=== PATIENT | female | born 2000 | race Caucasian/White ===

== ENCOUNTER 2019-07-17 16:08 | Outpatient (CLI) | payer MEDICAID ==
[2019-07-17 17:09] LABS: APPEARANCE,URINE CLOUDY; BILIRUBIN,URINE NEGATIVE (NEGATIVE); COLOR,URINE YELLOW; GLUCOSE, URINE NEGATIVE (NEGATIVE); KETONES,URINE NEGATIVE (NEGATIVE); LEUKOCYTE ESTERASE,URINE LARGE (NEGATIVE); NITRITE,URINE NEGATIVE (NEGATIVE); PROTEIN,URINE NEGATIVE (NEGATIVE); URINE SPECIFIC GRAVITY 1.015; UROBILINOGEN,URINE NEGATIVE mg/dL (<2.0)
[2019-07-17 17:10] LABS: ADD MANUAL MICROSCOPIC YES
[2019-07-17 17:29] LABS: URINE AMPHETAMINES SCREEN NEGATIVE; URINE BARBITURATES SCREEN NEGATIVE; URINE BENZODIAZEPINES SCREEN NEGATIVE; URINE COCAINE SCREEN NEGATIVE; URINE MARIJUANA (THC) SCREEN NEGATIVE; URINE METHADONE SCREEN NEGATIVE; URINE PHENCYCLIDINE SCREEN NEGATIVE
[2019-07-17 17:29] LABS: BACTERIA (WET MOUNT) 4+ BACTERIA SEEN; EPITHELIALS (WET MOUNT) 4+ EPITHELIALS SEEN; RBCS (WET MOUNT) NO RBCS SEEN; T.VAGINALIS (WET MOUNT) NO TRICHOMONAS SEEN; WBCS (WET MOUNT) 4+ WBCS SEEN; YEAST (WET MOUNT) NO YEAST SEEN
[2019-07-17 17:34] LABS: AMORPHOUS SEDIMENT,UR 3+; BACTERIA,URINE 1+ /HPF
[2019-07-17 18:50] LABS: CHLAM PCR NOT DETECTED (NOT DETECT)
--- NOTE | 2019-07-17 19:22 | Non Stress Test Report ---
Non Stress Test Datetime Report Generated by CPN: 07/17/2019 19:22 DEMOGRAPHIC EGA NST: 28.4 INDICATION Indication for Study: Ordered by Provider MONITORING Monitor Explained: Monitor Explained; Test Explained; Patient Verbalized Understanding Time on Monitor: 07/17/2019 18:39 Time off Monitor: 07/17/2019 18:59 NST Duration: 20 NST INTERVENTIONS NST Interventions: PO Hydration; Reposition Patient Physician Notified NST: Dr. Mcfarlane BABY A: [id number] BABY A Movement : Present Contraction Frequency : 0 FHR Baseline : 140 Accelerations : 15X15 Decelerations : None Variability : Moderate 6-25bpm NST Review: Meets Criteria for Reactive NST NST Review and Verified By : joanrtyoselinRN NST Results: Reactive NST REPORT Report Trigger: Send Report
== END 2019-07-17 19:11 | disposition home or self-care (01) ==
LOC: LC 16:08
PROVIDERS: ATTEND Obstetrics & Gynecology Gynecology
DX: O36.8330 Maternal care for abnormalities of the fetal heart rate or rhythm, third trimester, not applicable or unspecified (principal); Z3A.28 28 weeks gestation of pregnancy
CPT/HCPCS: 59025; 87210; 81001; 80307; 87491; 87591; Q0114

== ENCOUNTER 2019-09-25 08:09 | Outpatient (CLI) | payer MEDICAID ==
[~2019-09-25 08:09] MED LIST: FERRIC CARBOXYMALTOSE 750 MG in NORMAL SALINE 250 ML IV PRN; NORMAL SALINE 250 ML IV PRN
[2019-09-25 08:36] VITALS: BP 127/71
== END 2019-09-25 10:17 | disposition home or self-care (01) ==
LOC: II 08:09 → 5TH 08:12 → II 10:17
PROVIDERS: ATTEND Obstetrics & Gynecology
PROC: 3E033GC Introduction of Other Therapeutic Substance into Peripheral Vein, Percutaneous Approach (ICD-10-PCS; principal; 2019-09-25)
DX: O99.019 Anemia complicating pregnancy, unspecified trimester (principal)
CPT/HCPCS: 96365; J7050; J1439

== ENCOUNTER 2019-10-02 13:08 | Outpatient (CLI) | payer MEDICAID ==
[2019-10-02 15:30] LABS: URINE AMPHETAMINES SCREEN NEGATIVE; URINE BARBITURATES SCREEN NEGATIVE; URINE BENZODIAZEPINES SCREEN NEGATIVE; URINE COCAINE SCREEN NEGATIVE; URINE MARIJUANA (THC) SCREEN NEGATIVE; URINE METHADONE SCREEN NEGATIVE; URINE PHENCYCLIDINE SCREEN NEGATIVE
== END 2019-10-02 15:17 | disposition home or self-care (01) ==
LOC: LC 13:08
PROVIDERS: ATTEND Obstetrics & Gynecology
PROC: 4A1HXCZ Monitoring of Products of Conception, Cardiac Rate, External Approach (ICD-10-PCS; principal; 2019-10-02)
DX: Z34.83 Encounter for supervision of other normal pregnancy, third trimester (principal); Z3A.39 39 weeks gestation of pregnancy
CPT/HCPCS: 80307; 84112

== ENCOUNTER 2019-10-03 07:43 | Outpatient (CLI) | payer MEDICAID ==
[2019-10-03] MEDS ORDERED: FERRIC CARBOXYMALTOSE 750 MG in NORMAL SALINE 250 ML IV PRN (08:00)
[2019-10-03] MEDS ORDERED: NORMAL SALINE 250 ML IV PRN (08:00)
[2019-10-03 08:47] VITALS: BP 131/68
== END 2019-10-03 08:56 | disposition home or self-care (01) ==
LOC: II 07:43 → 5TH 07:47 → II 08:56
PROVIDERS: ATTEND Obstetrics & Gynecology
PROC: 3E033GC Introduction of Other Therapeutic Substance into Peripheral Vein, Percutaneous Approach (ICD-10-PCS; principal; 2019-10-03)
DX: O99.019 Anemia complicating pregnancy, unspecified trimester (principal)
CPT/HCPCS: 96365; J7050; J1439

== ENCOUNTER 2019-10-07 10:52 | Outpatient (CLI) | payer MEDICAID ==
--- NOTE | 2019-10-07 12:13 | Non Stress Test Report ---
Non Stress Test Datetime Report Generated by CPN: 10/07/2019 12:13 DEMOGRAPHIC EGA NST: 40.2 EGA NST: 39.4 INDICATION Indication for Study (NST) Other: Post dates Indication for Study (NST) Other: IUP @ 39.4 VITAL SIGNS Temperature - NST: 98.3 Pulse - NST: 110 RESP - NST: 18 NBPSYS NST: 115 NBPDIA NST: 56 MONITORING Monitor Explained: Monitor Explained; Test Explained; Patient Verbalized Understanding Monitor Explained: Monitor Explained; Test Explained; Patient Verbalized Understanding Time on Monitor: 10/07/2019 11:12 Time on Monitor: 10/02/2019 13:27 Time off Monitor: 10/07/2019 11:58 Time off Monitor: 10/02/2019 15:04 NST Duration: 46 NST Duration: 97 NST INTERVENTIONS NST Interventions: PO Hydration NST Interventions: PO Hydration; Reposition Patient Physician Notified NST: Zena Bahean CNM Physician Notified NST: Dr. Romo BABY A: [id number] BABY A Movement : Present Movement : Present Contraction Frequency : irregular FHR Baseline : 140 Accelerations : 15X15 Accelerations : 15X15 Decelerations : None Decelerations : None Variability : Moderate 6-25bpm Variability : Moderate 6-25bpm NST Review: Meets Criteria for Reactive NST NST Review: Meets Criteria for Reactive NST NST Review and Verified By : Niki Kurtz RN NST Results: Reactive NST Results: Reactive NST REPORT Report Trigger: Send Report
== END 2019-10-07 12:07 | disposition home or self-care (01) ==
LOC: LC 10:52
PROVIDERS: ATTEND Obstetrics & Gynecology
PROC: 4A1HXCZ Monitoring of Products of Conception, Cardiac Rate, External Approach (ICD-10-PCS; principal; 2019-10-07)
DX: O48.0 Post-term pregnancy (principal); Z3A.40 40 weeks gestation of pregnancy
CPT/HCPCS: 59025

== ENCOUNTER 2019-10-08 07:43 | Inpatient (IN) | payer MEDICAID ==
[2019-10-08] MEDS ORDERED: OXYTOCIN/NORMAL SALINE 20 UNIT/1,000 ML RTUINJ IV PRN ×2 (08:39→16:33)
[2019-10-08] MEDS ORDERED: RINGERS SOLUTION,LACTATED 1,000 ML IV PRN (08:39)
[2019-10-08] MEDS ORDERED: RINGERS SOLUTION,LACTATED 300 ML IV ONE (08:39)
--- NOTE | 2019-10-08 08:59 | Admission Physical ---
Datetime Report Generated by CPN: 10/08/2019 08:58 CURRENT ADMISSION Indication for Induction- Other: Advanced dilitation Admit Impression : Term, Intrauterine ; Intact Membranes Admit Plan: Admit to Unit; Initiate Labor Induction Protocol ALLERGIES Medication Allergies: No Medication Allergies: No Known Allergies (10/02/2019) Latex: No Latex Allergies Food Allergies: none Environmental Allergies: none OBSTETRICAL HISTORY EDC: 10/05/2019 00:00 : 3 Para: 1 Term: 1 : 0 SAB: 1 IAB: 0 Ectopic: 0 Livin Cesareans: 0 VBACs: 0 Multiple Births: 0 Gestational Diabetes: No Rh Sensitization: No Incompetent Cervix: No TEE: No Infertility: No ART Treatment: No Uterine Anomaly: No IUGR: No Hx Previous C/S: No Macrosomia: No Hx Loss/Stillborn: No PIH: No Hx : No Placenta Previa/Abruption: No Depression/PP Depression: No PTL/PROM: No Post Hemorrhage: No Current Procedures: Ultrasound; NST; BPP Obstetrical History Comments: G1 - (2015) G2 - 11/01/2017 G3 - Current SEE RECORDS Alcohol: No Marijuana : No Cocaine: No Other Illicit Drugs: No Cigarettes: Never Smoker. [id number] MEDICAL HISTORY Diabetes: No Blood Transfusion: No Pulmonary Disease (Asthma, TB): No Breast Disease: No Hypertension: No Quantitative Analyst Marketing Surgery: No Heart Disease: No Hosp/Surgery: Yes Autoimmune Disorder: No Anesthetic Complications: No Kidney Disease: No Abnormal Pap Smear: No Neuro/Epilepsy: No Psychiatric Disorders: No Other Medical Diseases: No Hepatitis/Liver Disease: No Significant Family History: Yes Varicosities/Phlebitis: No Trauma/Violence : No Thyroid Dysfunction: No Medical History Comments: Pt's mother with h/o AFIB, asthma, GDM INFECTIOUS HISTORY Gonorrhea: No Genital Herpes: No Chlamydia: No Tuberculosis: No Syphilis: No Hepatitis: No HIV/AIDS Exposure: No Rash or Viral Illness: No HPV: No PHYSICAL EXAM General: Normal HEENT: Normal Neurologic: Normal Thyroid: Normal Heart: Normal Lungs: Normal Breast: Normal Back: Normal Abdomen: Normal Genitourinary Exam: Normal Extremities: Normal DTRs: Normal Pelvic Type: Adequate Vital Signs: Reviewed; Within Normal Limits VAGINAL EXAM Dilatation: 6 Effacement: 50 Station: -2 Contraction Comments: irregular MEMBRANES Membranes: Intact FETUS A Monitoring: External US FHR- Baseline: 150s Variability: Moderate 6-25bpm Accelerations: 15X15 Decelerations: None FHR Category: Category I Admit Comment: presented to L_D c/o contractions. Checked in the office yesterday and cervix was 6 cm and thick. She reports good movement. GBS Neg. She has no co-morbidities. PLANS FOR LABOR AND DELIVERY Labor and Delivery: None Pain Management: Epidural Feeding Preference: Breast Benefit of Breast Feed Discussed: Yes Circumcision: N/A INFORMED CONSENT Signature: with User ID: [email or web address]
[2019-10-08 09:29] LABS: ABSOLUTE EOSINOPHILS # (AUTO) 0.1 10^3/uL (0.0-0.6); ABSOLUTE LYMPHOCYTES (AUTO) 1.4 10^3/uL (0.5-4.7); ABSOLUTE MONOCYTES (AUTO) 0.6 10^3/uL (0.1-1.4); ABSOLUTE NEUT (AUTO) 8.1 10^3/uL (1.7-8.2); BASOPHILS % (AUTO) 0.2 % (0-2); EOSINOPHILS % (AUTO) 0.5 % (0-6); HEMATOCRIT 34.6 % (36.0-47.0); LYMPHOCYTES % (AUTO) 14.1 % (13-45); MEAN CORPUSCULAR HEMOGLOBIN 23.6 pg (27.0-33.4); MEAN CORPUSCULAR HGB CONC 31.8 g/dL (32.0-36.0); MEAN CORPUSCULAR VOLUME 74 fl (80-97); MONOCYTES % (AUTO) 6.1 % (3-13); PLATELET COUNT 159 10^3/uL (150-450); RED BLOOD COUNT 4.67 10^6/uL (3.72-5.28); RED CELL DISTRIBUTION WIDTH 31.3 % (11.5-14.0); SEGMENTED NEUTROPHILS % (AUTO) 79.1 % (42-78); TOTAL CELLS COUNTED % (AUTO) 100 %; WHITE BLOOD COUNT 10.2 10^3/uL (4.0-10.5)
[2019-10-08 09:55] LABS: ANISOCYTOSIS 2+; PLATELET COMMENT ADEQUATE; POIKILOCYTOSIS SLIGHT; STOMATOCYTES SLIGHT
[2019-10-08 10:02] LABS: URINE AMPHETAMINES SCREEN NEGATIVE; URINE BARBITURATES SCREEN NEGATIVE; URINE BENZODIAZEPINES SCREEN NEGATIVE; URINE COCAINE SCREEN NEGATIVE; URINE MARIJUANA (THC) SCREEN NEGATIVE; URINE METHADONE SCREEN NEGATIVE; URINE PHENCYCLIDINE SCREEN NEGATIVE
[2019-10-08] MEDS ORDERED: OXYTOCIN/NORMAL SALINE 20 UNIT/1,000 ML RTUINJ ONE ×2 (11:25→13:36)
[2019-10-08] MEDS ORDERED: OXYTOCIN 10 UNIT/ML VIAL ONE (13:35)
[2019-10-08] MEDS ORDERED: LIDOCAINE 1% INJ-PF (10 MG/ML) 30 ML SDV ONE (13:36)
[2019-10-08] MEDS ORDERED: MISOPROSTOL 0.2 MG TABLET ONE (13:36)
[2019-10-08] MEDS ORDERED: FENTANYL CITRATE INJ/PF 100 MCG/2 ML AMPUL ONE (14:33)
[2019-10-08] MEDS ORDERED: FENTANYL CITRATE INJ/PF 100 MCG/2 ML AMPUL IV ONE (14:42)
[2019-10-08] MEDS ORDERED: MORPHINE SULFATE 10 MG/ML INJ ONE (16:11)
[2019-10-08] MEDS ORDERED: DIBUCAINE 1% OINTMENT 56 GM TP PRN (16:33)
[2019-10-08] MEDS ORDERED: PSEUDOEPHEDRINE HCL 30 MG TABLET PO PRN (16:33)
[2019-10-08] MEDS ORDERED: PROMETHAZINE HCL INJ 25 MG/1 ML VIAL IV PRN (16:33)
[2019-10-08] MEDS ORDERED: PROMETHAZINE HCL 25 MG TABLET PO PRN (16:33)
[2019-10-08] MEDS ORDERED: GLYCERIN/WITCH HAZEL LEAF 1 EACH MED..WIPE TP PRN (16:33)
[2019-10-08] MEDS ORDERED: DIPH/PERTUSS(ACELL)/TETANUS VAC/PF 0.5 ML SYR (>=10YO) IM PRN (16:33)
[2019-10-08] MEDS ORDERED: NA PHOS,M-B/NA PHOS,DI-BA (ADULT) 133 ML ENEMA PR PRN (16:33)
[2019-10-08] MEDS ORDERED: MAGNESIUM HYDROXIDE SUSP 30 ML UDCUP PO PRN (16:33)
[2019-10-08] MEDS ORDERED: MEASLES,MUMPS&RUBELLA VACC/PF 0.5 ML VIAL SUBCUT PRN (16:33)
[2019-10-08] MEDS ORDERED: ACETAMINOPHEN 650 MG SUPP.RECT PR PRN (16:33)
[2019-10-08] MEDS ORDERED: PROMETHAZINE HCL 25 MG SUPP.RECT PR PRN (16:33)
[2019-10-08] MEDS ORDERED: DIPHENHYDRAMINE HCL 25 MG CAPSULE PO PRN (16:33)
[2019-10-08] MEDS ORDERED: BENZOCAINE/MENTHOL AEROSOL SPRAY 56 ML TOP PRN (16:33)
[2019-10-08] MEDS ORDERED: MISOPROSTOL 0.2 MG TABLET PR ONE (16:43)
[2019-10-08] MEDS ORDERED: METHYLERGONOVINE MALEATE INJ/PF 0.2 MG/1 ML AMPULE ONE (18:14)
[2019-10-08] MEDS ORDERED: METHYLERGONOVINE MALEATE INJ/PF 0.2 MG/1 ML AMPULE IV ONE (18:17)
[2019-10-08] MEDS ORDERED: IBUPROFEN 800 MG TABLET ONE (18:26)
[2019-10-08] MEDS: IBUPROFEN 800 MG TABLET PO SCH (18:32)
--- NOTE | 2019-10-08 19:31 | Delivery Summary ---
Del Sum A-C Datetime Report Generated by CPN: 10/08/2019 19:31 DELIVERY PERSONNEL DELIVERY PERSONNEL: [id number] Delivery Doctor:: Rosalia Weinberg CNM Labor and Delivery Nurse:: Gayatri Diaz RNcalibration checker Nurse:: IRAIS Michelle Tech/HOSPITAL INSURANCE REPRESENTATIVE: Flor Meyers, ST Additional Personnel: : RONN Emerson MATERNAL INFORMATION Delivery Anesthesia: None Medications After Delivery: Pitocin Bolus-Please Comment; Methergine 0.2mg IM; Cytotec 1000mcg Per Rectum/Vagina Delivery QBL: 1198 Maternal Complications: Hemorrhage Provider Comments: pt progressed to c/c/1 with urge to push. Began pushing and completely stopped pushing efforts after delivery of head. Pt. climbed up the bed and started screaming and would not push. Loose nuchal cord released and discussed with patient the importance of taking control and to start pushing again but patient would not push. Andrews RN in bed and patient already in [place] and suprapubic pressure applied and baby delivered without difficulty. Baby placed on maternal abdomen and after tactile stimulation strong respiratory effort and cry noted. Cord clamped x2 and cut by myself and baby to warmer by nursery nurse. Large clots and bleeding present, placenta appeared stuck at cervix but then delivered spontaneously intact. large clots and bleeding continued and vaginal sweep performed. Clots removed and fundus firm @ u-1. Cytotec given rectally and bleeding stabilized. Vaginal and perineal inspection revealed small abrasion as stated and hemostatic. Mother and baby remain in room and stable at this time. LABOR SUMMARY EDC: 10/05/2019 00:00 No. Babies in Womb: 1 Attempted: No Labor Anesthesia: IV Sedation LABOR INFORMATION Reason for Induction: Other Reason for Induction- Other: advanced dilatation Onset of Labor: 10/08/2019 12:57 Complete Dilatation: 10/08/2019 15:55 Oxytocin: Induction Group B Beta Strep: Negative Antibiotics # of Doses: 0 Antibiotics Time of Last Dose: n/a Name of Antibiotic Given: n/a Steroids Given: None Reason Steroids Not Administered: Not Applicable MEMBRANES Membranes Rupture Method: Artificial Rupture of Membranes: 10/08/2019 12:57 Length of Rupture (hr): 3.08 Amniotic Fluid Color: Clear Amniotic Fluid Amount: Moderate Amniotic Fluid Odor: Normal STAGES OF LABOR Stage 1 hr: 2 Stage 1 min: 58 Stage 2 hr: 0 Stage 2 min: 7 Stage 3 hr: 0 Stage 3 min: 9 Total Time in Labor hr: 3 Total Time in Labor min: 14 VAGINAL DELIVERY Episiotomy: None Laceration #1: None Laceration Extension #1: N/A Other Laceration: superficial vaginal hemostatic no need for repair Laceration Repair: Not Applicable Sponge Count Correct: N/A Sharps Count Correct: Yes BABY A INFORMATION Delivery Date/Time: 10/08/2019 16:02 Method of Delivery: Vaginal Born in Route : No : N/A Forceps: N/A Vacuum Extraction: N/A Shoulder Dystocia : No PRESENTATION/POSITION BABY A Presentation: Cephalic Cephalic Presentation: Vertex Vertex Position: Left Occipital Anterior Breech Presentation: N/A PLACENTA INFORMATION BABY A Placenta Delivery Time : 10/08/2019 16:11 Placenta Method of Delivery: Expressed Placenta Status: Delivered SCORES BABY A Heart Rate 1 min: >100 bpm Resp Effort 1 min: Absent Reflex Irritability 1 min: No Response Muscle Tone 1 min: Some Flexion of Extremities Color 1 min: Blue/Pale Resuscitation Effort 1 min: Tactile Stimulation SCORE 1 MIN: 3 Heart Rate 5 min: >100 bpm Resp Effort 5 min: Good Cry Reflex Irritability 5 min: Cough or Sneeze or Pulls Away Muscle Tone 5 min: Active Motion Color 5 min: Blue/Pale Resuscitation Effort 5 min: Tactile Stimulation SCORE 5 MIN: 8 INFORMATION BABY A Gestational Age at Delivery: 40.3 Gestational Status: Full Term- 39- 40.6 Weeks Infant Outcome : Liveborn Condition : Stable Infant Sex: Female IDENTIFICATION BABY A Verification Date/Time: 10/08/2019 17:26 ID Band Number: [id number] Mother's Name Verified: Yes RN Verifying Infant: JNiebuhr,RN Additional Verifying Personnel: IRAIS Orantes WEIGHT/LENGTH BABY A Infant Birthweight (gm): 3975 Weight (lb): 8 Infant Weight (oz): 12 Length (in): 21.00 Length (cm): 53.34 CORD INFORMATION BABY A No. Cord Vessels: 3 Nuchal Cord : Around Neck x1, Loose Cord Blood Taken: Yes-For Storage (Mom's Blood type +) Infant Suction: None ASSESSMENT BABY A Complications: Other Complications- Other: Poor maternal effort to push after delivery of head Physical Findings at Delivery: Bruising Infant Respirations: Appears Normal Skin to Skin: Yes Skin to Skin Time (min): 40 Asbestos Shingle Roofer/ALS Called : No Infant Care By: Kamilla Diaz RN Transferred To: Remains with Mother BABY B INFORMATION : N/A SIGNATURES Assignment: Leonarda Koehler MD Signature: with User ID: Mer : with User ID: Mer
[2019-10-08] MEDS ORDERED: DOCUSATE SODIUM 100 MG CAPSULE ONE (20:08)
[2019-10-08] MEDS ORDERED: FERROUS SULFATE 325 MG TABLET PO ONE (20:09)
[2019-10-08] MEDS: DOCUSATE SODIUM 100 MG CAPSULE PO SCH (20:19)
[2019-10-08] MEDS: FERROUS SULFATE 325 MG TABLET PO SCH (20:19)
[2019-10-08 20:34] LABS: HEMATOCRIT 30.8 % (36.0-47.0); HEMOGLOBIN 9.7 g/dL (12.0-15.5); MEAN CORPUSCULAR HEMOGLOBIN 23.2 pg (27.0-33.4); MEAN CORPUSCULAR HGB CONC 31.5 g/dL (32.0-36.0); MEAN CORPUSCULAR VOLUME 74 fl (80-97); PLATELET COUNT 152 10^3/uL (150-450); RED BLOOD COUNT 4.18 10^6/uL (3.72-5.28); RED CELL DISTRIBUTION WIDTH 30.6 % (11.5-14.0); WHITE BLOOD COUNT 19.7 10^3/uL (4.0-10.5)
[2019-10-08] MEDS: FAMOTIDINE 20 MG TABLET PO SCH (22:29)
[2019-10-09 00:47] LABS: HEMATOCRIT 25.9 % (36.0-47.0); HEMOGLOBIN 8.2 g/dL (12.0-15.5); MEAN CORPUSCULAR HEMOGLOBIN 23.4 pg (27.0-33.4); MEAN CORPUSCULAR HGB CONC 31.6 g/dL (32.0-36.0); MEAN CORPUSCULAR VOLUME 74 fl (80-97); PLATELET COUNT 141 10^3/uL (150-450); RED CELL DISTRIBUTION WIDTH 30.6 % (11.5-14.0); WHITE BLOOD COUNT 14.5 10^3/uL (4.0-10.5)
[2019-10-09] MEDS: IBUPROFEN 800 MG TABLET PO SCH ×3 (02:56→17:27)
[2019-10-09] MEDS ORDERED: ACETAMINOPHEN WITH CODEINE #3 TABLET PO PRN (07:37)
[2019-10-09] MEDS: ACETAMINOPHEN WITH CODEINE #3 TABLET PO PRN ×2 (07:50→19:48)
[2019-10-09] MEDS ORDERED: MEASLES,MUMPS&RUBELLA VACC/PF 0.5 ML VIAL SUBCUT PRN (08:00)
[2019-10-09] MEDS ORDERED: DIPH/PERTUSS(ACELL)/TETANUS VAC/PF 0.5 ML SYR (>=10YO) IM PRN (08:00)
[2019-10-09] MEDS ORDERED: PROMETHAZINE HCL INJ 25 MG/1 ML VIAL IV PRN (08:00)
--- NOTE | 2019-10-09 08:49 | PDOC PROGRESS REPORT ---
Subjective-OB Progress Note for:: 10/09/19 Subjective: Some dizziness and light-headed when upright. Physical Exam (OB) Vital Signs: Temp Pulse Resp BP Pulse Ox 97.9 F 90 16 104/57 L 97 10/09/19 08:12 10/09/19 08:12 10/09/19 08:12 10/09/19 08:12 10/09/19 08:12 Intake & Output 10/08/19 10/09/19 10/10/19 06:59 06:59 06:59 Intake Total 250 Balance 250 Weight 83.7 kg - PIH/Pre-Eclampsia Clonus: Negative Headache: Absent Epigastric Pain: No Visual Changes: No - Lochia Lochia Amount: Scant < 10 ml Lochia Color: Rubra/Red - Abdomen Description: Tender, Soft, Round Hernia Present: No Bowel Sounds: Normoactive Flatus Presence: Present Stool: No Fundal Description: Firm, Midline Fundal Height: u/u - u/2 Objective-Diagnostic Laboratory: 10/09/19 00:35 10/08/19 10/08/19 10/08/19 08:50 08:50 20:17 WBC 10.2 19.7 H RBC 4.67 4.18 Hgb 11.0 L 9.7 L Hct 34.6 L 30.8 L MCV 74 L 74 L MCH 23.6 L 23.2 L MCHC 31.8 L 31.5 L RDW 31.3 H 30.6 H Plt Count 159 152 Seg Neutrophils % 79.1 H Blood Type A POSITIVE Antibody Screen NEGATIVE 10/09/19 00:35 WBC 14.5 H RBC 3.50 L Hgb 8.2 L Hct 25.9 L MCV 74 L MCH 23.4 L MCHC 31.6 L RDW 30.6 H Plt Count 141 L Seg Neutrophils % Blood Type Antibody Screen
[2019-10-09] MEDS ORDERED: IRON SUCROSE COMPLEX INJ/PF 100 MG/5 ML SDV IV SCH ×2 (09:00→11:30)
[2019-10-09] MEDS: DOCUSATE SODIUM 100 MG CAPSULE PO SCH ×2 (09:42→17:27)
[2019-10-09] MEDS: PRENATAL VITAMIN W DHA CAPSULE PO SCH (09:43)
[2019-10-09] MEDS: FERROUS SULFATE 325 MG TABLET PO SCH ×2 (09:43→17:27)
[2019-10-09] MEDS: SENNOSIDES/DOCUSATE 8.6-50 MG 1 EACH TABLET PO SCH (09:43)
[2019-10-09] MEDS: FAMOTIDINE 20 MG TABLET PO SCH ×2 (09:43→22:04)
[2019-10-09] MEDS ORDERED: ASCORBIC ACID 100 MG PO SCH (10:00)
[2019-10-09] MEDS ORDERED: FERROUS SULFATE 325 MG TABLET PO SCH (10:00)
[2019-10-09] MEDS ORDERED: IRON SUCROSE COMPLEX INJ/PF 100 MG/5 ML SDV IV ONE (12:00)
[2019-10-10] MEDS: IBUPROFEN 800 MG TABLET PO SCH ×2 (01:39→10:58)
--- NOTE | 2019-10-10 10:56 | PDOC DISCHARGE SUMMARY ---
Impression - Admit/DC Date/PCP Admission Date/Primary Care Provider: 10/08/19 07:43 DEMETRICE STOREY MD Discharge Date: 10/10/19 - Discharge Diagnosis (1) Acute blood loss anemia Is this a current diagnosis for this admission?: Yes (2) Delivery normal Is this a current diagnosis for this admission?: Yes (3) Encounter for induction of labor Is this a current diagnosis for this admission?: Yes - Additional Information Resuscitation Status: Full Code Discharge Diet: Regular Discharge Activity: Balance Activity w/Rest, Pelvic Rest Referrals: DEMETRICE STOREY MD [Primary Care Provider] - Prescriptions: Ibuprofen [Motrin 800 mg Tablet] 800 mg PO Q8HP PRN #60 tablet PRN Reason: Home Medications: Ascorbic Acid [Vitamin C] 100 mg PO DAILY 10/08/19 Ferrous Sulfate [Iron] 325 mg PO DAILY 10/08/19 Ibuprofen [Motrin 800 mg Tablet] 800 mg PO Q8HP PRN #60 tablet 10/10/19 Results Laboratory Results: WBC 14.5 10^3/uL (4.0-10.5) H 10/09/19 00:35 RBC 3.50 10^6/uL (3.72-5.28) L 10/09/19 00:35 Hgb 8.2 g/dL (12.0-15.5) L 10/09/19 00:35 Hct 25.9 % (36.0-47.0) L 10/09/19 00:35 MCV 74 fl (80-97) L 10/09/19 00:35 MCH 23.4 pg (27.0-33.4) L 10/09/19 00:35 MCHC 31.6 g/dL (32.0-36.0) L 10/09/19 00:35 RDW 30.6 % (11.5-14.0) H 10/09/19 00:35 Plt Count 141 10^3/uL (150-450) L 10/09/19 00:35 Lymph % (Auto) 14.1 % (13-45) 10/08/19 08:50 [place] % (Auto) 6.1 % (3-13) 10/08/19 08:50 Eos % (Auto) 0.5 % (0-6) 10/08/19 08:50 Baso % (Auto) 0.2 % (0-2) 10/08/19 08:50 Absolute Neuts (auto) 8.1 10^3/uL (1.7-8.2) 10/08/19 08:50 Absolute Lymphs (auto) 1.4 10^3/uL (0.5-4.7) 10/08/19 08:50 Absolute Monos (auto) 0.6 10^3/uL (0.1-1.4) 10/08/19 08:50 Absolute Eos (auto) 0.1 10^3/uL (0.0-0.6) 10/08/19 08:50 Absolute Basos (auto) 0.0 10^3/uL (0.0-0.2) 10/08/19 08:50 Seg Neutrophils % 79.1 % (42-78) H 10/08/19 08:50 Platelet Comment ADEQUATE 10/08/19 08:50 Poikilocytosis SLIGHT 10/08/19 08:50 Anisocytosis 2+ 10/08/19 08:50 Stomatocytes SLIGHT 10/08/19 08:50 Urine Opiates Screen NEGATIVE 10/08/19 07:59 Urine Methadone Screen NEGATIVE 10/08/19 07:59 Ur Barbiturates Screen NEGATIVE 10/08/19 07:59 Ur Phencyclidine Scrn NEGATIVE 10/08/19 07:59 Ur Amphetamines Screen NEGATIVE 10/08/19 07:59 U Benzodiazepines Scrn NEGATIVE 10/08/19 07:59 Urine Cocaine Screen NEGATIVE 10/08/19 07:59 U Marijuana (THC) Screen NEGATIVE 10/08/19 07:59 RPR NONREACTIVE (NONREACTIVE) 10/08/19 08:50 Rubella IgG Antibody 24.20 IU/mL 10/08/19 08:50 Rubella IgG Ab Interp POSITIVE 10/08/19 08:50 Blood Type A POSITIVE 10/08/19 08:50 Blood Type Confirm A POSITIVE 10/08/19 08:50 Antibody Screen NEGATIVE 10/08/19 08:50 Crossmatch See Detail 10/08/19 08:50
[2019-10-10] MEDS: PRENATAL VITAMIN W DHA CAPSULE PO SCH (10:57)
[2019-10-10] MEDS: SENNOSIDES/DOCUSATE 8.6-50 MG 1 EACH TABLET PO SCH (10:57)
[2019-10-10] MEDS: FERROUS SULFATE 325 MG TABLET PO SCH (10:57)
[2019-10-10] MEDS: DOCUSATE SODIUM 100 MG CAPSULE PO SCH (10:58)
[2019-10-10] MEDS: FAMOTIDINE 20 MG TABLET PO SCH (10:59)
[2019-10-10 11:03] LABS: ABSOLUTE EOSINOPHILS # (AUTO) 0.1 10^3/uL (0.0-0.6); ABSOLUTE LYMPHOCYTES (AUTO) 1.7 10^3/uL (0.5-4.7); ABSOLUTE MONOCYTES (AUTO) 0.5 10^3/uL (0.1-1.4); ABSOLUTE NEUT (AUTO) 6.8 10^3/uL (1.7-8.2); BASOPHILS % (AUTO) 0.4 % (0-2); EOSINOPHILS % (AUTO) 1.6 % (0-6); HEMATOCRIT 26.9 % (36.0-47.0); HEMOGLOBIN 8.7 g/dL (12.0-15.5); LYMPHOCYTES % (AUTO) 18.9 % (13-45); MEAN CORPUSCULAR HEMOGLOBIN 24.7 pg (27.0-33.4); MEAN CORPUSCULAR HGB CONC 32.2 g/dL (32.0-36.0); MEAN CORPUSCULAR VOLUME 77 fl (80-97); MONOCYTES % (AUTO) 5.1 % (3-13); PLATELET COUNT 146 10^3/uL (150-450); RED BLOOD COUNT 3.51 10^6/uL (3.72-5.28); RED CELL DISTRIBUTION WIDTH 30.9 % (11.5-14.0); TOTAL CELLS COUNTED % (AUTO) 100 %; WHITE BLOOD COUNT 9.2 10^3/uL (4.0-10.5)
[2019-10-10 11:48] LABS: POLYCHROMASIA SLIGHT; TEAR DROP CELLS SLIGHT
[2019-10-10 11:49] LABS: ANISOCYTOSIS 3+; HYPOCHROMASIA 1+; OVALOCYTES SLIGHT; PLATELET COMMENT DECREASED; POIKILOCYTOSIS 1+
[2019-10-10 12:55] VITALS: BP 106/61
== END 2019-10-10 13:30 | disposition home or self-care (01) | DRG 806 ==
LOC: LR 07:43 → 2S 21:18
PROVIDERS: ADMIT Obstetrics & Gynecology; ATTEND Obstetrics & Gynecology
PROC: 10E0XZZ Delivery of Products of Conception, External Approach (ICD-10-PCS; principal; 2019-10-08)
PROC: 3E033VJ Introduction of Other Hormone into Peripheral Vein, Percutaneous Approach (ICD-10-PCS; 2019-10-08)
PROC: 10907ZC Drainage of Amniotic Fluid, Therapeutic from Products of Conception, Via Natural or Artificial Opening (ICD-10-PCS; 2019-10-08)
PROC: 30233N1 Transfusion of Nonautologous Red Blood Cells into Peripheral Vein, Percutaneous Approach (ICD-10-PCS; 2019-10-08)
DX: O62.8 Other abnormalities of forces of labor (principal); D62 Acute posthemorrhagic anemia; Z37.0 Single live birth; O67.8 Other intrapartum hemorrhage; O70.0 First degree perineal laceration during delivery; Z3A.40 40 weeks gestation of pregnancy; O69.81X0 Labor and delivery complicated by cord around neck, without compression, not applicable or unspecified; O99.02 Anemia complicating childbirth
CPT/HCPCS: 36415; 36430; 80307; 85025; 86592; 86762; 86850; 86900; 86901; 86920; J1756; J2210; J2270; J2590; J3010; J3490; P9016

== ENCOUNTER → 2020-08-05 | Outpatient (CLI) | payer OTHER ==
--- NOTE | 2020-08-05 11:23 | ER RDC ASSESSMENT REPORT ---
Intake - In the Last 14 days Have you traveled outside [place]?: No Have you been in close contact with someone CONFIRMED: Yes Worked in Healthcare?: No - Symptoms Subjective Fever(Blanco feverish): No Chills: Yes Muscule Aches: No Runny Nose: No Sore Throat: Yes Cough (New or worsening chronic cough): No Shortness of breath: Yes Nausea or Vomiting: Yes Headache: No Abdominal Pain: No Diarrhea(3 or more loose stools in last 24 hours): No - Do you have any of the following Chronic lung disease: Asthma or emphysema or COPD: No Cystic Fibrosis: No Diabetes: No High Blood Pressure: No Cardiovascular Disease: No Chronic Kidney Disease: No Chronic Liver Disease: No Chronic blood disorder like Sickle Cell Disease: No Weak immune system due to disease or medication: No Neurologic condition that limits movement: No Developmental delay - Moderate to Severe: No Recent (within past 2 weeks) or current : No Morbid Obesity (>100 pounds over ideal weight): No - Objective Temperature: 98.1 F Pulse Rate: 85 Respiratory Rate: 18 Blood Pressure: 115/65 O2 Sat by Pulse Oximetry: 98 Objective: Given above, testing performed: flu, strep, covid Disposition: Home; Selfcare General - General Stated Complaint: flu symptoms Time Seen by Provider: 08/05/20 09:55 Mode of Arrival: Ambulatory Information source: Patient - HPI Notes: 19-year-old female presents to [facility] clinic for COVID-19 testing. Patient reports exposure to COVID positive friend within the past 1 to 2 weeks. Onset of symptoms 08/01/2020. She is currently complaining of sore throat, chills, nausea, and shortness of breath with exertion and occasionally at night. Denies any fever, muscle aches, runny nose, cough, headache, abdominal pain or diarrhea. States she feels the symptoms are beginning to resolve at this point but have not yet gone away. - Related Data Allergies/Adverse Reactions: No Known Allergies Allergy (Verified 10/02/19 13:34) Past Medical History - General Information source: Patient - Social History Smoking Status: Never Smoker Family History: Reviewed & Not Pertinent - Past Medical History Cardiac Medical History: Reports: None Denies: Hx Congestive Heart Failure, Hx Coronary Artery Disease, Hx Hypertension, Hx Heart Murmur Pulmonary Medical History: Reports: None EENT Medical History: Reports: None Neurological Medical History: Reports: Hx Migraine. Denies: Hx Seizures Endocrine Medical History: Reports: None Renal/ Medical History: Reports: None Malignancy Medical History: Reports: None GI Medical History: Reports: None Musculoskeletal Medical History: Reports None Skin Medical History: Reports None Psychiatric Medical History: Reports: None Traumatic Medical History: Reports: None Infectious Medical History: Reports: None Past Surgical History: Reports: Hx Appendectomy. Denies: Hx Cardiac Catheterization, Hx Hysterectomy, Hx Pacemaker, Hx Valve Replacement, Hx Vascular Surgery Physical Exam - General General appearance: Appears well, Alert In distress: None Notes: PHYSICAL EXAMINATION: GENERAL: Well-appearing and in no acute distress. HEAD: Atraumatic, normocephalic. EYES: sclera anicteric, conjunctiva are normal. ENT: nares patent. Moist mucous membranes. NECK: Normal range of motion, supple without lymphadenopathy. LUNGS: No increased work of breathing. Lung sounds CTAB and equal. No wheezes rales or rhonchi. HEART: Regular rate and rhythm without murmurs. ABDOMEN: Soft, nontender, normal bowel sounds, no guarding. EXTREMITIES: Normal range of motion, no pitting edema. No cyanosis. NEUROLOGICAL: A&O x 3. Normal speech. PSYCH: Normal mood, normal affect. SKIN: Warm, Dry, normal turgor, no rashes or lesions noted Patient Education/Counseling Counseling/Education: Patient presents with symptoms associated with possible Covid 19 infection. Patient does not have emergency worrying symptoms such as chest pain, pressure, confusion or cyanosis. She is not currently short of breath and SPO2 sats aniyah ined stable, SCRAP PILER normal, lung sounds normal. Patient appears suitable for discharge as vital signs are stable and patient is nontoxic in appearance but advised to present to ER if shortness of breath worsens. Good return precautions have been discussed with patient, patient verbalized understanding and is agreeable with discharge plan of care at this time. Guidance for worsening S/SX: As a person under investigation for Covid 19, the [facility], division of public health advises you to adhere to the following guidance until your test results are reported to you. If your test result is positive, you will receive additional information from your provider and your local health department at that time. Remain at home until you are cleared by the health provider or public health authorities. Keep a log of visitors to your home, notify any visitors to your home of your isolation status. If you plan to move to a new address or leave the county, notify the local health department in your County. Call your doctor or seek care if you have an urgent medical need. Before seeking medical care, call ahead to get instructions from the provider before arriving at the medical office clinic or hospital. Notify them that you are being tested for the virus that causes Covid 19 so that arrangements can be made, as necessary, to prevent transmission to others in the healthcare setting. Next, notify the local health department in your county. If a medical emergency arises and you need to call 911, inform the first responders that you are being tested for the virus that causes Covid 19. Next, notify the local health department in your county. RDC Discharge - Discharge Clinical Impression: Encounter for screening laboratory testing for COVID-19 virus Condition: Good Disposition: Home; Selfcare
[2020-08-05 11:24] VITALS: BP 115/65
[2020-08-05 12:41] LABS: A TYPE INFLUENZA AG NEGATIVE (NEGATIVE); B INFLUENZA AG NEGATIVE (NEGATIVE)
== END ==
LOC: RDC 09:51
PROVIDERS: ATTEND Registered Nurse
DX: Z20.828 Contact with and (suspected) exposure to other viral communicable diseases (principal); R68.83 Chills (without fever); J02.9 Acute pharyngitis, unspecified; R06.02 Shortness of breath; R11.0 Nausea
CPT/HCPCS: 87070; 87880; 87635; 87804; C9803; 99201; 99211